=== PATIENT | male | born 1950 | race Caucasian/White ===

== ENCOUNTER 2018-05-27 17:24 | Inpatient (IN) | payer MEDICARE, OTHER ==
[~2018-05-27] VITALS: Ht 180.3 cm; Wt 61.6 kg
--- NOTE | ~2018-05-27 | MORECARE ---
CASE MANAGEMENT DISCHARGE SUMMARY PATIENT: MAGI GONZALEZ UNIT: [id number] ADM DATE: 05/27/18 AGE: 68 : 49 SEX: M ROOM/BED: D.1210 AUTHOR: ANTOINETTEDOC PHYSICIAN: REFERRING PHYSICIAN: MYESHA SHEPPARD MD DATE OF SERVICE: 05/30/18 Discharge Plan Patient Name: MAGI GONZALEZ Facility: [facility]:[place] : 1950 Planned Disposition: Home Anticipated Discharge Date: Discharge Date: 05/30/2018 Expected LOS: Initial Reviewer: [email or web address] Initial Review Date: 05/28/2018 Generated: 05/30/18 8:06 pm Comments DCP- Discharge Planning Updated by [email or web address]: Gini Reyez on 05/30/18 5:[address] IMM explained and served 16:45 CM will continue to follow and assist as needed with discharge planning / needs. DCP- Discharge Planning Updated by [email or web address]: Gini Reyez on 05/28/18 4:[address] Patient Name: MAGI GONZALEZ Admission Status: ER Accout number: [id number] Admission Date: 05-27-2018 : 1950 Admission Diagnosis: Attending: MYESHA SHEPPARD Current LOS: 1 Anticipated DC Date: Planned Disposition: Home Primary Insurance: MEDICARE A & B Discharge Planning Comments: CM met with patient at bedside after obtaining verbal consent. Patient states he plans on returning home after discharge with his . Patient states he will have family transport him home via private vehicle. Patient denies any discharge needs at this time. CM will continue to follow and assist as needed for discharge planning / needs. Camp Tender: Gini Reyez DCPIA - Discharge Planning Initial Assessment Updated by [email or web address]: Gini Reyez on 05/28/18 5:02 pm * Is the patient Alert and Oriented? Yes * How many steps to enter\exit or inside your home? * PCP N/A * [facility] [address] * Preadmission Environment Home with Family * ADLs Independent * Equipment None * List name and contact numbers for known caregivers / representatives who currently or will assist patient after discharge: Yolanda Gonzalez spouse [phone] * Verbal permission to speak to the caregivers and representatives has been obtained from the patient. N/A * Community resources currently utilized None * Additional services required to return to the preadmission environment? No * Can the patient safely return to the preadmission environment? Yes * Has this patient been hospitalized within the prior 30 days at any hospital? No Coverage Notice Reviewer: [email or web address] Timoteo Reyez Notice Issued Date-Time: 05/30/2018 16:45 Notice Type: IM Discharge Notice Notice Delivered To: Patient Relationship to Patient: Self [employer] Administrator Name: Delivery Method: HAND - Hand Delivered Cheryle Days: Prior Verbal Notification: Recipient Understood Notice: Yes Recipient Signature: Yes Med Rec Note Co-signed by Attending: Coverage Notice Comment: Last DP export: 05/28/18 4:07 Patient Name: MAGI GONZALEZ Page [id number] at 1906 All edits/amendments must be made on the electronic document DICTATION DATE: 05/30/181904 MATTRESS FILLER: CAPRICE 05/30/181904 RPT#: [id number] DC DATE:05/30/18 STATUS: DIS IN [facility] [address] [place] [address] END OF REPORT
--- NOTE | ~2018-05-27 | MORECARE ---
CASE MANAGEMENT DISCHARGE SUMMARY PATIENT: MAGI GONZALEZ UNIT: [id number] ADM DATE: 05/27/18 AGE: 68 : 49 SEX: M ROOM/BED: D.1210 AUTHOR: ANTOINETTEDOC PHYSICIAN: REFERRING PHYSICIAN: MYESHA SHEPPARD MD DATE OF SERVICE: 06/02/18 Discharge Plan Patient Name: MAGI GONZALEZ Facility: [facility]:[place] : 1950 Planned Disposition: Home Anticipated Discharge Date: Discharge Date: 05/30/2018 Expected LOS: Initial Reviewer: [email or web address] Initial Review Date: 05/28/2018 Generated: 06/02/18 10:22 am Comments DCP- Discharge Planning Updated by [email or web address]: Gini Reyez on 05/30/18 5:[address] IMM explained and served 16:45 CM will continue to follow and assist as needed with discharge planning / needs. DCP- Discharge Planning Updated by [email or web address]: Gini Reyez on 05/28/18 4:[address] Patient Name: MAGI GONZALEZ Admission Status: ER Accout number: [id number] Admission Date: 05-27-2018 : 1950 Admission Diagnosis: Attending: MYESHA SHEPPARD Current LOS: 1 Anticipated DC Date: Planned Disposition: Home Primary Insurance: MEDICARE A & B Discharge Planning Comments: CM met with patient at bedside after obtaining verbal consent. Patient states he plans on returning home after discharge with his . Patient states he will have family transport him home via private vehicle. Patient denies any discharge needs at this time. CM will continue to follow and assist as needed for discharge planning / needs. [employer] Consultant: Gini Reyez DCPIA - Discharge Planning Initial Assessment Updated by [email or web address]: Gini Reyez on 05/28/18 5:02 pm * Is the patient Alert and Oriented? Yes * How many steps to enter\exit or inside your home? * PCP N/A * [facility] [address] * Preadmission Environment Home with Family * ADLs Independent * Equipment None * List name and contact numbers for known caregivers / representatives who currently or will assist patient after discharge: Yolanda Gonzalez spouse [phone] * Verbal permission to speak to the caregivers and representatives has been obtained from the patient. N/A * Community resources currently utilized None * Additional services required to return to the preadmission environment? No * Can the patient safely return to the preadmission environment? Yes * Has this patient been hospitalized within the prior 30 days at any hospital? No Coverage Notice Reviewer: [email or web address] Timoteo Reyez Notice Issued Date-Time: 05/30/2018 16:45 Notice Type: IM Discharge Notice Notice Delivered To: Patient Relationship to Patient: Self [employer] Crm Developer Name: Delivery Method: HAND - Hand Delivered Cheryle Days: Prior Verbal Notification: Recipient Understood Notice: Yes Recipient Signature: Yes Med Rec Note Co-signed by Attending: Coverage Notice Comment: Last DP export: 05/30/18 6:06 Patient Name: MAGI GONZALEZ Page [id number] at 0922 All edits/amendments must be made on the electronic document DICTATION DATE: 06/02/18921 WAGON PERSON: CAPRICE 06/02/18921 RPT#: [id number] DC DATE:05/30/18 STATUS: DIS IN [facility] [address] [place] [address] END OF REPORT
[2018-05-27] MEDS ORDERED: TYLENOL #4 W/CO1 TAB (17:31)
[2018-05-27] MEDS ORDERED: ROBAXIN500 MG (17:31)
[2018-05-27] MEDS ORDERED: PAXIL40 MG (17:31)
[2018-05-27 19:19] LABS: BASOPHILS 0.2 % (0-2); EOSINOPHILS 0.5 % (0-7); HEMATOCRIT 38.8 % (42.0-54.0); HEMOGLOBIN 13.4 g/dL (13.5-17.5); IMMATURE GRANULOCYTES 0.5 % (0-5); MCH 32.8 pg (26.0-34.0); MCHC 34.5 g/dL (31.0-37.0); MCV 94.9 fL (80.0-100.0); MEAN PLATELET VOLUME 9.8 fL (7.4-10.4); MONOCYTES 8.3 % (2-11); NEUTROPHILS 78.5 % (40-80); PLATELET COUNT 352 10x3/uL (130-400); RBC 4.09 10x6/uL (4.20-6.10); RDW 12.4 % (11.5-14.5); WBC 18.7 10x3/uL (4.8-10.8)
[2018-05-27 19:38] VITALS: BP 107/85
[2018-05-27 19:56] LABS: ALKALINE PHOSPHATASE 74 U/L (46-116); ALT (SGPT) 26 U/L (10-68); BILIRUBIN - TOTAL 0.59 mg/dL (0.2-1.3); CALC OSMOLALITY 278 mosm/kg (275-300); CALCIUM 9.2 mg/dL (8.5-10.1); CARBON DIOXIDE 25.7 mmol/L (21.0-32.0); CHLORIDE - SERUM 102 mmol/L (98-107); GLUCOSE 114 mg/dL (74-106); PROTEIN - SERUM 7.5 g/dL (6.4-8.2); SODIUM 140 mmol/L (136-145); UREA NITROGEN 11 mg/dL (7-18)
[2018-05-27 20:11] LABS: eGFR NON AFRICAN AMERICAN 79 mL/min (90-120)
[2018-05-27 22:30] VITALS: BP 137/97
[2018-05-27 22:55] VITALS: BP 179/102; BMI 19.4
[2018-05-27 23:00] VITALS: BP 97/64
[2018-05-28] VITALS (15 sets, daily range): BP systolic 95–145; BP diastolic 61–88; Ht 180.3 cm; Wt 61.6 kg
[2018-05-28 04:36] LABS: BASOPHILS 0.2 % (0-2); EOSINOPHILS 0.8 % (0-7); HEMOGLOBIN 13.8 g/dL (13.5-17.5); IMMATURE GRANULOCYTES 0.3 % (0-5); LYMPHOCYTES 28.6 % (15-50); MCH 32.5 pg (26.0-34.0); MCHC 33.7 g/dL (31.0-37.0); MCV 96.5 fL (80.0-100.0); MEAN PLATELET VOLUME 9.1 fL (7.4-10.4); MONOCYTES 10.7 % (2-11); NEUTROPHILS 59.4 % (40-80); PLATELET COUNT 301 10x3/uL (130-400); RBC 4.25 10x6/uL (4.20-6.10); RDW 12.4 % (11.5-14.5); WBC 14.6 10x3/uL (4.8-10.8)
[2018-05-28 05:00] LABS: ALBUMIN 4.1 g/dL (3.4-5.0); ANION GAP 13.4 mmol/L (8-16); BILIRUBIN - TOTAL 0.85 mg/dL (0.2-1.3); CALCIUM 9.2 mg/dL (8.5-10.1); CARBON DIOXIDE 29.4 mmol/L (21.0-32.0); POTASSIUM - SERUM 3.8 mmol/L (3.5-5.1); PROTEIN - SERUM 7.7 g/dL (6.4-8.2)
[2018-05-28 05:02] LABS: CREATININE - SERUM 1.3 mg/dL (0.6-1.3)
[2018-05-29 03:00] VITALS: BP 126/74
[2018-05-29 05:04] LABS: BASOPHILS 0.2 % (0-2); EOSINOPHILS 2.4 % (0-7); HEMATOCRIT 34.8 % (42.0-54.0); HEMOGLOBIN 11.6 g/dL (13.5-17.5); IMMATURE GRANULOCYTES 0.2 % (0-5); LYMPHOCYTES 19.7 % (15-50); MCH 31.9 pg (26.0-34.0); MCHC 33.3 g/dL (31.0-37.0); MCV 95.6 fL (80.0-100.0); MEAN PLATELET VOLUME 9.4 fL (7.4-10.4); MONOCYTES 12.1 % (2-11); NEUTROPHILS 65.4 % (40-80); PLATELET COUNT 257 10x3/uL (130-400); RBC 3.64 10x6/uL (4.20-6.10); RDW 12.3 % (11.5-14.5)
[2018-05-29 05:27] LABS: ALBUMIN 3.4 g/dL (3.4-5.0); ALKALINE PHOSPHATASE 66 U/L (46-116); ALT (SGPT) 21 U/L (10-68); BILIRUBIN - TOTAL 0.46 mg/dL (0.2-1.3); CALCIUM 8.7 mg/dL (8.5-10.1); CARBON DIOXIDE 30.2 mmol/L (21.0-32.0); CHLORIDE - SERUM 102 mmol/L (98-107); GLUCOSE 128 mg/dL (74-106); PHOSPHOROUS 2.9 mg/dL (2.5-4.9); POTASSIUM - SERUM 3.6 mmol/L (3.5-5.1); PROTEIN - SERUM 6.7 g/dL (6.4-8.2); SODIUM 139 mmol/L (136-145); eGFR NON AFRICAN AMERICAN 89 mL/min (90-120)
[2018-05-29 05:32] LABS: WBC 9.9 10x3/uL (4.8-10.8)
[2018-05-29 05:37] LABS: CALC OSMOLALITY 280 mosm/kg (275-300); CREATININE - SERUM 0.9 mg/dL (0.6-1.3); UREA NITROGEN 14 mg/dL (7-18)
[2018-05-29 07:00] VITALS: BP 127/70
[2018-05-29 11:00] VITALS: BP 107/52; BP 137/72
[2018-05-29 15:00] VITALS: BP 130/83
[2018-05-29 19:00] VITALS: BP 160/86
[2018-05-29 23:00] VITALS: BP 160/86
[2018-05-30 03:00] VITALS: BP 135/80
[2018-05-30 07:52] VITALS: BP 144/66
[2018-05-30 11:32] VITALS: BP 108/69
[2018-05-30 15:28] VITALS: BP 155/85
[2018-05-30] MEDS ORDERED: NORCO 10-325 TA1 TAB PO (15:59)
== END 2018-05-30 17:15 | disposition home or self-care (01) | DRG 200 ==
LOC: D.ER 17:24 → D.M3 21:00 → EDBD 21:00 → D.ICU 21:00 → D.M3 05-30 05:05
PROVIDERS: Family Medicine; Surgery
DX: S27.0XXA Traumatic pneumothorax, initial encounter (principal); S22.41XA Multiple fractures of ribs, right side, initial encounter for closed fracture; W13.2XXA Fall from, out of or through roof, initial encounter; M54.2 Cervicalgia

== ENCOUNTER → 2018-06-13 11:58 | Outpatient (CLI) | payer MEDICARE, OTHER ==
[2018-05-28 09:57] VITALS: BMI 19.3
[~2018-06-13 11:58] MED LIST: NORCO 10-325 TA1 TAB PO; PAXIL40 MG; ROBAXIN500 MG; TYLENOL #4 W/CO1 TAB
== END | disposition home or self-care (01) ==
LOC: D.CT 11:30
DX: S27.0XXA Traumatic pneumothorax, initial encounter (principal)